=== PATIENT | female | born 1950 | race Caucasian/White ===

== ENCOUNTER 2018-09-17 19:39 | Observation (INO) | payer OTHER ==
--- OUTSIDE RECORDS SUMMARY | 2018-09-17 19:42 | XMS REPORT ---
:1950 [facility] [address] [place] [address] Care Team Providers Name Role Phone BRADY WATTS Primary Care Provider Unavailable STEVEN BHATT M.D. Unavailable Unavailable SERGEY NICOLAS M.D. Unavailable Unavailable Problems This patient has no known problems. Allergies, Adverse Reactions, Alerts This patient has no known allergies or adverse reactions. Medications This patient has no known medications. Encounters Start End Encounter Admission Attending Care Care Encounter Date/Time Date/Time Type Type Clinicians Facility Department ID 2017-05-19 2017-05-19 Inpatient [facility] [id number] 17:23:00 13:14:00 2016-10-23 2016-10-23 Outpatient [facility] [id number] 07:25:00 07:25:00 2016-10-23 2016-10-23 Outpatient [facility] [id number] 07:24:00 07:24:00 2016-10-23 2016-10-23 Outpatient [facility] [id number] 07:17:00 07:17:00 2016-10-21 2016-10-21 Outpatient [facility] [id number] 07:35:00 07:35:00 2016-10-15 2016-10-15 Outpatient [facility] [id number] 07:20:00 07:20:00 2016-10-14 2016-10-14 Outpatient [facility] [id number] 07:54:00 07:54:00 2016-10-09 2016-10-09 Outpatient [facility] [id number] 07:31:00 07:31:00 2016-10-04 2016-10-03 Inpatient [facility] [id number] 04:07:00 20:44:00 Results Test Description Test Time Test Comments Text Results Atomic Results Result Comments CT HEAD OR BRAIN WO 2017-05-19 16:38:35 Information: Trauma, fall, right- sided CONTRAST ecchymosis, prior craniotomyCT scan of the brain without contrastMultiplanar reformatted images of the head were obtained withoutintravenous contrastCorrelation was made with the patient's prior CT scan of the brain date05/23/2015No acute intracranial hemorrhage, midline shifts or focal masses werenoted. Right-sided craniotomy defect and focal dural thickening is againnoted. Chronic left-sided subdural hygroma is identified. Generalizedatrophy, chronic white matter ischemic changes and multiple areas ofencephalomalacia more prominently noted within both frontal lobes isagain identified.IMPRESSION:1. No evidence of acute intracranial trauma2. Chronic left subdural hygroma3. Right craniotomy defect4. Generalized atrophy, chronic white matter ischemic changes andmultiple areas of encephalomalacia again noted.Radiation dose lowering techniques were used according to Kirill. [id number]& FIBULA 2V. 2017-05-19 15:10:32 RIGHT LOWER LEG 2 VIEWS:CLINICAL HISTORY: Right leg pain and swelling.Bony structures are osteoporotic. Cortical margins are intact. There issoft tissue edema within the lower two thirds of the lower leg. This ismost prominent along the lateral aspect. No radiopaque foreign bodiesare identified. Vascular calcifications are noted.IMPRESSION:1. No acute osseous abnormality.2. Soft tissue swelling and edema. US DUPLX LWR EXT.VEIN 2017-05-19 14:34:21 EXAM: Right Lower Extremity Duplex COMPRSS UNI-RIGHT Venous Sonogram.TECHNIQUE: Greyscale imaging with and without Doppler interrogationincluding Doppler wave-form analysis and Doppler color-flow imaging.HISTORY: Right lower extremity edema.COMPARISON: 10/04/2016.FINDINGS: Right Lower Extremity: The common femoral, superficial femoral, andpopliteal veins demonstrated normal compressibility, and normalaugmented and phasic Doppler data were obtained. Normal augmentedDoppler data was obtained from the peroneal, posterior tibial, andanterior tibial veins.Left Lower Extremity: Not studied.IMPRESSION: No evidence of DVT involving the right lower extremity. CT LWR.EXTRM WO 2016-10-04 07:58:08 Information: Found on floorCT scan of CONTRAST-RIGHT the right hipMultiplanar reformatted images of the right hip were obtained.There is a subtle nondisplaced fracture of the greater trochanter. Thereis mild sclerosis and osteophytic spurring of the articulating surfaces.Degenerative cysts noted of the femoral head. There is mild soft tissueedema overlying the greater trochanter. No significant joint effusion isnoted.IMPRESSION:1. Subtle nondisplaced fracture of the greater trochanter2. Degenerative changes3. Mild soft tissue edema.Radiation dose lowering techniques were used with automated exposurecontrol, adjusting the mA according to patient's size.The preliminary findings were faxed to the emergency room by Dr. Lorenzanaat 0022 hours. XR PELVIS 1-2 VIEWS 2016-10-04 07:56:32 Information: Fall and floorPelvis one viewAllowing for the rotation of the right femur there is an equivocalsubtle nondisplaced fracture of the greater trochanter. There is mildsclerosis and osteophytic spurring of the articulating surfaces. Thereare no dislocations or masses.IMPRESSION:1. Findings suggesting a subtle nondisplaced fracture of the greatertrochanter.2. Degenerative changes. XR X-RAY EXAM OF FEMUR 2016-10-04 07:55:14 Information: Found on floorRight femur 2/>-RIGHT 2 viewsThere is equivocal subtle cortical lucency with cortical interruption ofthe greater trochanter. Fracture is not excluded. No dislocations ormasses were demonstrated. There is slight sclerosis of the articulatingsurfaces of the acetabulum with mild osteophyte formation.IMPRESSION:1. Equivocal subtle nondisplaced fracture of the greater trochanter.2. Degenerative changes of the right hip. [id number]& FIBULA 2V. 2016-10-04 07:35:25 Information: FallRight tibia-fibula 2 viewsThere is diffuse demineralization. There are no gross fractures,dislocations or masses. There is slight sclerosis of the articulatingsurfaces.IMPRESSION:1. Demineralization2. No gross evidence of acute bony trauma3. Mild degenerative changes. XR CHEST SGL 1V, 2016-10-04 07:14:39 Information: FallChest one viewIn FRONTAL comparison to the prior chest x-ray dated 05/23/2015 the heart remainsenlarged. Pulmonary vascularity is normal. There are no pulmonaryconsolidations or pleural effusions. Transfixed right clavicularfracture is again noted.IMPRESSION:1. Cardiomegaly. US DUPLX LWR EXT.VEIN 2016-10-04 06:56:01 ULTRASOUND RIGHT LEG VEINS: CLINICAL COMPRSS UNI-RIGHT INFORMATION: Lower extremity edema, erythema. Real-time ultrasound, duplex doppler, color flow, and spectral waveformexamination of the femoral and popliteal veins as well as the proximalupper calf veins was performed.The veins have a normal appearance without internal echoes or extrinsicabnormality. They are normally compressible. Lower extremity edema isnoted. No sonographic abnormalities are otherwise seen around the veins. Doppler studies reveal normal blood flow.IMPRESSION: Patent deep veins of the right lower extremity.The report was faxed to Dr. Barrett in the ER by Dr. Lorenzana on 10/04/2016 at04:53 AM.
[2018-09-17] MEDS ORDERED: NA CHLORIDE 0.9% 1,000 ML ONE (20:41)
[2018-09-17] MEDS ORDERED: ACETAMINOPHEN 500 MG TAB ONE (20:41)
[2018-09-17 20:52] LABS: Absolute Lymphocytes (CBC) 1.3 K/uL (0.7-4.9); Basophils % 0.3 % (0-1.3); Hematocrit 36.7 % (36.0-45.0); MPV 8.1 fL (7.6-11.3); RBC Red Blood Cell Count 3.82 M/uL (3.86-4.86)
[2018-09-17 21:05] LABS: Protime INR 1.05
[2018-09-17 21:19] LABS: ALT/SGPT 12 U/L (12-78); AST/SGOT 11 U/L (15-37); Albumin 2.6 g/dL (3.4-5.0); Alkaline Phosphatase 202 U/L (45-117); BUN Blood Urea Nitrogen 29 mg/dL (7-18); Bicarbonate 25 mmol/L (21-32); Bilirubin Direct < 0.1 mg/dL (0-0.2); Bilirubin Total 0.2 mg/dL (0.2-1.0); Creatine Phosphokinase 50 U/L (26-192); Glucose Level 105 mg/dL (74-106); Lipase 207 U/L (73-393); Magnesium 2.2 mg/dL (1.8-2.4); Potassium 4.5 mmol/L (3.5-5.1); Protein, Total 6.1 g/dL (6.4-8.2); Sodium Level 140 mmol/L (136-145); Troponin (Emerg Dept Use Only) < 0.02 ng/mL (0.0-0.045)
[2018-09-17] MEDS ORDERED: MORPHINE 2 MG/ML SYR IV PRN (23:41)
[2018-09-17] MEDS ORDERED: ONDANSETRON 4 MG/2 ML VIAL IV PRN (23:41)
[2018-09-17] MEDS ORDERED: ACETAMINOPHEN 500 MG TAB PO PRN (23:41)
--- NOTE | 2018-09-17 23:47 | ER ---
Nurse's Notes [facility] Name: Janett Diego Age: 68 yrs Sex: Female : 1950 Arrival Date: 09/17/2018 Time: 19:45 Bed 4 Private MD: Diagnosis: transient AMS;seizure Presentation: 09/17 19:45 Presenting complaint: EMS states: When we got to the patients house the patient was jd3 acting normal, but the had called for seizure like activity. while we were assessing her she had a syncope episode lasting about 2 min. she started drooling and went unresponsive and her blood pressure dropped and her heart rate went down. she woke up slowly and was fully back to normal by the time we got here. even happened at about 1900. she has right sided deficits from a previous stroke with history of Jaime problems like Parkinson's and dementia.". Transition of care: patient was not received from another setting of care. Onset of symptoms was September 17, 2018. Risk Assessment: Do you want to hurt yourself or someone else? Patient reports no desire to harm self or others. Initial Sepsis Screen: Does the patient meet any 2 criteria? Altered Mental Status. No. Patient's initial sepsis screen is negative. Does the patient have a suspected source of infection? No. Patient's initial sepsis screen is negative. Care prior to arrival:. 19:45 Method Of Arrival: EMS: [facility] jd3 19:45 Acuity: KATHY 2 jd3 Historical: - Allergies: 19:53 No Known Allergies; jd3 - Home Meds: 19:53 Unable to obtain [Active]; jd3 - PMHx: 19:53 CVA; Parkinsons; Dementia; jd3 - PSHx: 19:53 abdominal surgery; jd3 - Immunization history:: Adult Immunizations unknown. - Social history:: Smoking status: Patient uses tobacco products, smokes one pack cigarettes per day. - Ebola Screening: : Patient negative for fever greater than or equal to 101.5 degrees Fahrenheit, and additional compatible Ebola Virus Disease symptoms. - Family history:: not pertinent. - Hospitalizations: : No recent hospitalization is reported. Screenin:54 Abuse screen: Denies threats or abuse. Nutritional screening: No deficits noted. jd3 Tuberculosis screening: No symptoms or risk factors identified. Fall Risk IV access (20 points). Ambulatory Aid- Crutches/Cane/Walker (15 pts). Gait- Weak (10 pts.). Mental Status- Overestimates/Forgets Limitations (15 pts.). Total Dumont Fall Scale indicates High Risk Score (45 or more points). Fall prevention measures have been instituted. Side Rails Up X 2 Placed Close to Nursing Station Frequent Obs/Assessments Occuring. Assessment: 19:55 General: Appears in no apparent distress. comfortable, Behavior is calm, cooperative. jd3 Pain: Denies pain. Neuro: Level of Consciousness is awake, alert, obeys commands, confused, Oriented to person, place. Cardiovascular: Heart tones S1 S2 present Capillary refill < 3 seconds Patient's skin is warm and dry. Rhythm is irregular. Respiratory: Airway is patent Respiratory effort is even, unlabored, Respiratory pattern is regular, symmetrical, Breath sounds are clear bilaterally. Denies cough, shortness of breath. GI: No signs and/or symptoms were reported involving the gastrointestinal system. : No signs and/or symptoms were reported regarding the genitourinary system. EENT: No signs and/or symptoms were reported regarding the EENT system. Derm: Skin is intact, Skin is dry, Skin is normal, Skin temperature is warm. Musculoskeletal: Circulation, motion, and sensation intact. Range of motion: intact in all extremities. 20:50 Reassessment: Patient appears in no apparent distress at this time. No changes from jd3 previously documented assessment. Patient and/or family updated on plan of care and expected duration. Pain level reassessed. 21:55 Reassessment: Patient appears in no apparent distress at this time. No changes from jd3 previously documented assessment. Patient and/or family updated on plan of care and expected duration. Pain level reassessed. 22:59 Reassessment: Patient appears in no apparent distress at this time. Patient and/or jd3 family updated on plan of care and expected duration. Pain level reassessed. awaiting admission, even and unlabored respirations noted. called taylor in reach. Patient denies pain at this time. 23:38 Reassessment: Patient appears in no apparent distress at this time. No changes from jd3 previously documented assessment. Patient and/or family updated on plan of care and expected duration. Pain level reassessed. Dr. Jordan at bedside Patient denies pain at this time. 09/18 00:16 Reassessment: Patient appears in no apparent distress at this time. Patient and/or jd3 family updated on plan of care and expected duration. Pain level reassessed. report called to Trinidad LOGAN. even and unlabored respirations. A\\T\\O X 2. IV is saline locked.. site is clean and dry with no redness or swelling. Patient denies pain at this time. 00:42 Reassessment: linens changed before pt is admitted. Patient denies pain at this time. jd3 Vital Signs: 09/17 19:53 BP 93 / 54; Pulse 89; Resp 20 S; Temp 98.0(O); Pulse Ox 100% on R/A; Weight 68.04 kg jd3 (R); Height 5 ft. 2 in. (157.48 cm) (R); Pain 0/10; 21:55 BP 114 / 73; Pulse 82; Resp 20 S; Pulse Ox 100% on R/A; jd3 22:59 BP 121 / 58; Pulse 87; Resp 16 S; Pulse Ox 100% on R/A; Pain 0/10; jd3 23:39 BP 130 / 95; Pulse 80; Resp 15 S; Pulse Ox 100% on R/A; jd3 09/18 00:17 BP 134 / 71; Pulse 85; Resp 14 S; Pulse Ox 100% on R/A; jd3 09/17 19:53 Body Mass Index 27.44 (68.04 kg, 157.48 cm) jd3 ED Course: 09/17 19:45 Patient arrived in ED. jd3 19:52 Triage completed. jd3 19:54 Arm band placed on. EKG completed in triage. Results shown to . jd3 19:54 Inserted saline lock: 22 gauge in left antecubital area, using aseptic technique. jd3 placed by [employer]. 19:55 Bassam Ceballos MD is Attending Physician. wa 19:56 Patient has correct armband on for positive identification. Placed in gown. Bed in low jd3 position. Call light in reach. Side rails up X2. youth nutritional monitor on. Pulse ox on. NIBP on. 20:01 Dilip Kolb RN is Primary Nurse. jd3 20:43 CT Head Brain wo Cont In Process Unspecified. EDMS 20:56 Inserted saline lock: 22 gauge in right antecubital area, using aseptic technique. jd3 Blood collected. placed by Hanna LOGAN. 23:46 Sabi Jordan MD is Hospitalizing Provider. ny 09/18 00:18 No provider procedures requiring assistance completed. Patient admitted, IV remains in jd3 place. Administered Medications: 09/17 20:56 Drug: NS 0.9% 1000 ml Route: IV; Rate: 1 bolus; Site: right antecubital; jd3 22:58 Follow up: Response: No adverse reaction; IV Status: Completed infusion; IV Intake: jd3 1000ml 20:56 Drug: Tylenol 1000 mg Route: PO; jd3 21:55 Follow up: Response: No adverse reaction jd3 Intake: 22:58 IV: 1000ml; Total: 1000ml. jd3 Outcome: 23:47 Decision to Hospitalize by Provider. ny 09/18 00:18 Admitted to Tele accompanied by tech, via stretcher, room 230, with chart, Report samia called to Trinidad LOGAN Condition: stable Instructed on the need for admit, Demonstrated understanding of instructions. 00:43 Patient left the ED. jd3 Signatures: Dispatcher [employer] EDMS Bassam Ceballos MD MD wa Davies, Jonathon, RN RN jd3 Corrections: (The following items were deleted from the chart) 09/17 19:59 19:45 Presenting complaint: EMS states: When we got to the patients house the patient samia was acting normal, but the had called for seizure like activity. while we were assessing her she had a syncope episode lasting about 2 min. she started drooling and went unresponsive. her blood pressure also dropped and her heart rate went down. she woke up slowly and was fully back to normal by the time we got here. even happened at about 1900. she has right sided deficits from a previous stroke" jd3 20:57 19:54 Inserted saline lock: 22 gauge in left antecubital area, using aseptic technique. jd3 jd3
--- NOTE | 2018-09-17 23:48 | EDPHYS ---
Physician Documentation [facility] Name: Janett Diego Age: 68 yrs Sex: Female : 1950 Arrival Date: 09/17/2018 Time: 19:45 Bed 4 Private MD: ED Physician Bassam Ceballos HPI: 09/17 21:30 This 68 yrs old Female presents to ER via EMS with complaints of found wa unresponsive. 21:44 The patient has experienced syncope, became unresponsive, lost consciousness. Onset: wa The symptoms/episode began/occurred just prior to arrival. Duration: This was a single episode, that lasted 3 minute(s). Context: the episode(s) was witnessed. 23:47 Associated injury: The patient did not suffer any apparent associated injury. wa Associated signs and symptoms: Pertinent positives: mild SPRING. Current symptoms: headache. The patient has not experienced similar symptoms in the past. The patient has not recently seen a physician. found unresponsive and drooling by family. did not witness shaking. however took several minutes before pt became more alert. Historical: - Allergies: 19:53 No Known Allergies; jd3 - Home Meds: 19:53 Unable to obtain [Active]; jd3 - PMHx: 19:53 CVA; Parkinsons; Dementia; jd3 - PSHx: 19:53 abdominal surgery; jd3 - Immunization history:: Adult Immunizations unknown. - Social history:: Smoking status: Patient uses tobacco products, smokes one pack cigarettes per day. - Ebola Screening: : Patient negative for fever greater than or equal to 101.5 degrees Fahrenheit, and additional compatible Ebola Virus Disease symptoms. - Family history:: not pertinent. - Hospitalizations: : No recent hospitalization is reported. ROS: 23:48 Constitutional: Negative for fever, chills, and weight loss, Eyes: Negative for injury, wa pain, redness, and discharge, ENT: Negative for injury, pain, and discharge, Neck: Negative for injury, pain, and swelling, Cardiovascular: Negative for chest pain, palpitations, and edema, Respiratory: Negative for shortness of breath, cough, wheezing, and pleuritic chest pain, Abdomen/GI: Negative for abdominal pain, nausea, vomiting, diarrhea, and constipation, Back: Negative for injury and pain, : Negative for injury, bleeding, discharge, and swelling, MS/Extremity: Negative for injury and deformity, Skin: Negative for injury, rash, and discoloration. 23:48 Neuro: Positive for altered mental status, headache, syncope. 23:48 All other systems are negative. Exam: 23:49 Abdomen/GI: Exam negative for Inspection: abdomen appears normal, Bowel sounds: normal, wa Palpation: abdomen is soft and non-tender. 23:49 Constitutional: This is a well developed, well nourished patient who is awake, alert, and in no acute distress. Head/Face: Normocephalic, atraumatic. Eyes: Pupils equal round and reactive to light, extra-ocular motions intact. Lids and lashes normal. Conjunctiva and sclera are non-icteric and not injected. Cornea within normal limits. Periorbital areas with no swelling, redness, or edema. ENT: Nares patent. No nasal discharge, no septal abnormalities noted. Tympanic membranes are normal and external auditory canals are clear. Oropharynx with no redness, swelling, or masses, exudates, or evidence of obstruction, uvula midline. Mucous membranes moist. Neck: Trachea midline, no thyromegaly or masses palpated, and no cervical lymphadenopathy. Supple, full range of motion without nuchal rigidity, or vertebral point tenderness. No Meningismus. Cardiovascular: Regular rate and rhythm with a normal S1 and S2. No gallops, murmurs, or rubs. Normal PMI, no JVD. No pulse deficits. Respiratory: Lungs have equal breath sounds bilaterally, clear to auscultation and percussion. No rales, rhonchi or wheezes noted. No increased work of breathing, no retractions or nasal flaring. Abdomen/GI: Soft, non-tender, with normal bowel sounds. No distension or tympany. No guarding or rebound. No evidence of tenderness throughout. Back: No spinal tenderness. No costovertebral tenderness. Full range of motion. Skin: Warm, dry with normal turgor. Normal color with no rashes, no lesions, and no evidence of cellulitis. MS/ Extremity: Pulses equal, no cyanosis. Neurovascular intact. Full, normal range of motion. Psych: Awake, alert, with orientation to person, place and time. Behavior, mood, and affect are within normal limits. 23:49 Neuro: Orientation: is normal, Cranial nerves: grossly normal, Motor: RUE contracture. moves LE symmetrically. Vital Signs: 19:53 BP 93 / 54; Pulse 89; Resp 20 S; Temp 98.0(O); Pulse Ox 100% on R/A; Weight 68.04 kg jd3 (R); Height 5 ft. 2 in. (157.48 cm) (R); Pain 0/10; 21:55 BP 114 / 73; Pulse 82; Resp 20 S; Pulse Ox 100% on R/A; jd3 22:59 BP 121 / 58; Pulse 87; Resp 16 S; Pulse Ox 100% on R/A; Pain 0/10; jd3 23:39 BP 130 / 95; Pulse 80; Resp 15 S; Pulse Ox 100% on R/A; d3 09/18 00:17 BP 134 / 71; Pulse 85; Resp 14 S; Pulse Ox 100% on R/A; jd3 09/17 19:53 Body Mass Index 27.44 (68.04 kg, 157.48 cm) jd3 MDM: 09/17 19:55 Patient medically screened. ks 23:49 Differential Diagnosis: cardiac arrhythmia, cerebrovascular accident, seizure, ks vasovagal episode, syncope. Data reviewed: lab test result(s), EKG, radiologic studies. Test interpretation: by ED physician or midlevel provider: EKG interp by me: HR 90. sinus. PVCs. LBBB. 23:55 Response to treatment: the patient's symptoms have markedly improved after treatment. ks Physician consultation: Sabi Jordan MD. Admission orders: after a detailed discussion of the patient's condition and case, the admit orders are written by me. 09/17 20:13 Order name: UDS ks 09/17 20:13 Order name: Basic Metabolic Panel; Complete Time: 22: ks 09/17 20:13 Order name: CBC with Diff; Complete Time: 22: ks 09/17 20:13 Order name: CPK; Complete Time: 22: ks 09/17 20:13 Order name: Hepatic Function; Complete Time: 22: ks 09/17 20:13 Order name: Lipase; Complete Time: 22:08 ks 09/17 20:13 Order name: Magnesium; Complete Time: 22:08 ks 09/17 20:13 Order name: Protime (+inr); Complete Time: 22:08 ks 09/17 20:13 Order name: Troponin (emerg Dept Use Only); Complete Time: 22:08 ks 09/17 20:16 Order name: Urine Microscopic Only ks 09/17 23:46 Order name: CBC with Automated Diff EDDC 09/17 23:46 Order name: CBC with Automated Diff EDDC 09/17 23:46 Order name: Comprehensive Metabolic Panel EDDC 09/17 23:46 Order name: Comprehensive Metabolic Panel EDDC 09/17 20:13 Order name: CT Head Brain wo Cont ks 09/17 20:13 Order name: EKG; Complete Time: 20:14 ks 09/17 20:13 Order name: Cardiac monitoring; Complete Time: 20:29 ks 09/17 20:13 Order name: EKG - Nurse/Tech; Complete Time: 20:29 ks 09/17 20:13 Order name: IV Saline Lock; Complete Time: 20:29 ks 09/17 20:13 Order name: NPO; Complete Time: 20:29 ks 09/17 20:13 Order name: O2 Per Protocol; Complete Time: 20:29 ks 09/17 20:13 Order name: O2 Sat Monitoring; Complete Time: 20:29 ks 09/17 23:46 Order name: CONS Pharmacy Consult [facility] 09/17 23:46 Order name: CONS Physician Consult [facility] 09/17 23:46 Order name: NPO EDDC 09/17 23:46 Order name: EEG Request [facility] 09/17 23:46 Order name: EEG Request EDDC Administered Medications: 20:56 Drug: NS 0.9% 1000 ml Route: IV; Rate: 1 bolus; Site: right antecubital; jd3 22:58 Follow up: Response: No adverse reaction; IV Status: Completed infusion; IV Intake: jd3 1000ml 20:56 Drug: Tylenol 1000 mg Route: PO; jd3 21:55 Follow up: Response: No adverse reaction jd3 Disposition: 09/17/18 23:47 Hospitalization ordered by Sabi Jordan for Observation. Preliminary diagnosis are transient AMS, seizure. - Bed requested for Telemetry/MedSurg (observation). - Status is Observation. jd3 - Condition is Stable. - Problem is new. - Symptoms have improved. UTI on Admission? No Signatures: Dispatcher [employer] EDDC Ann-Marie Reyna RN Bassam Juarez MD MD wa Davies, Jonathon, RN RN jd3 Corrections: (The following items were deleted from the chart) 09/18 00:09/17 23:47 Hospitalization Ordered by Sabi Jordan MD for Observation. Preliminary fc diagnosis is transient AMS; seizure. Bed requested for Telemetry/MedSurg (observation). Status is Observation. Condition is Stable. Problem is new. Symptoms have improved. UTI on Admission? No. ks 09/18 00:43 00:01 09/17/2018 23:47 Hospitalization Ordered by Sabi Jordan MD for Observation. jd3 Preliminary diagnosis is transient AMS; seizure. Bed requested for Telemetry/MedSurg (observation). Status is Observation. Condition is Stable. Problem is new. Symptoms have improved. UTI on Admission? No.
--- NOTE | 2018-09-18 01:23 | P.HP ---
Certification for Inpatient Patient admitted to: Observation With expected LOS: <2 Midnights Patient will require the following post-hospital care: None Practitioner: I am a practitioner with admitting privileges, knowledge of patient current condition, hospital course, and medical plan of care. Services: Services provided to patient in accordance with Admission requirements found in Title 42 Section 412.3 of the Code of Federal Regulations Patient History Date of Service: 09/17/18 Reason for admission: Seizure disorder/acute onset of seizure History of Present Illness: Patient is a 68-year-old female who is here in the [facility] vacationing. Patient originally is from [place]. Patient became confused and it appears she had had a seizure. She has had a history of a large MCA infarct. Her speech however was not affected. She came into the hospital today because she became altered. Her brother who was with err did not witness and active seizure. However, since she had a large left MCA infarct she has had seizures. She will be admitted to the hospital for further workup. Allergies No Known Allergies Allergy (Unverified 09/18/18 00:59) - Past Medical/Surgical History -: History of CVA -: History of seizure disorder -: Coronary artery bypass - Family History Father Family History: Reviewed- Non-Contributory - Social History Smoking Status: Light Tobacco smoker (1-9 cigarettes/day) Alcohol use: No CD- Drugs: No Review of Systems 10-point ROS is otherwise unremarkable Physical Examination - Vital Signs Temperature: 98 F Blood Pressure: 130/70 Pulse: 80 Respirations: 18 Pulse Ox (%): 96 - Physical Exam General: Alert, In no apparent distress, Oriented x3 HEENT: Atraumatic, PERRLA, Mucous membr. moist/pink, EOMI, Sclerae nonicteric Neck: Supple, 2+ carotid pulse no bruit, No LAD, Without JVD or thyroid abnormality Respiratory: Clear to auscultation bilaterally, Normal air movement Cardiovascular: Regular rate/rhythm, Normal S1 S2, No murmurs Gastrointestinal: Normal bowel sounds, Soft and benign, Non-distended, No tenderness Musculoskeletal: No tenderness Integumentary: No rashes Neurological: Normal speech, Normal tone, Sensation intact, Cranial nerves 3-12 intact, Normal affect, Abnormal gait, Abnormal strength (Right upper and lower extremity are weaker than the left) Lymphatics: No axilla or inguinal lymphadenopathy - Studies Laboratory Data (last 24 hrs) 09/17/18 20:53: PT 12.4, INR 1.05 09/17/18 20:53: Sodium 140, Potassium 4.5, BUN 29 H, Creatinine 1.05, Glucose 105, Magnesium 2.2, Total Bilirubin 0.2, AST 11 L, ALT 12, Alkaline Phosphatase 202 H, Lipase 207 09/17/18 20:32: WBC 10.5, Hgb 12.1, Hct 36.7, Plt Count 222 Assessment & Plan - Problems (Diagnosis) (1) Seizure disorder Current Visit: Yes Status: Acute (2) Prerenal azotemia Current Visit: Yes Status: Acute (3) Left acute arterial ischemic stroke, MCA (middle cerebral artery) Current Visit: Yes Status: Acute - Plan Plan: 1. Anti-platelet therapy 2. Statin therapy 3. O2 per protocol 4. Rule out DVT 5. EEG 6. Neurology consultation 7. Possible discharge in the morning with outpatient follow-up Discharge Plan: Home Plan to discharge in: 48 Hours - Advance Directives Does patient have a Living Will: No Does patient have a Durable POA for Healthcare: No - Code Status/Comfort Care Code Status Assessed: Yes Code Status: Full Code Critical Care: No Time Spent Managing PTS Care (In Minutes): 45
[2018-09-18] MEDS: NA CHLORIDE 0.9% 1,000 ML IV SCH ×2 (01:29→10:01)
[2018-09-18 06:35] LABS: Absolute Lymphocytes (CBC) 2.3 K/uL (0.7-4.9); Basophils % 0.2 % (0-1.3); Hematocrit 31.9 % (36.0-45.0); Lymphocytes % 33.1 % (15.3-44.8); MPV 8.6 fL (7.6-11.3); RBC Red Blood Cell Count 3.39 M/uL (3.86-4.86)
[2018-09-18 06:56] LABS: Albumin 2.1 g/dL (3.4-5.0); Bilirubin Total 0.3 mg/dL (0.2-1.0); Potassium 3.6 mmol/L (3.5-5.1); Protein, Total 4.9 g/dL (6.4-8.2)
[2018-09-18] MEDS ORDERED: levETIRAcetam 500 MG TAB PO ONE (10:43)
--- NOTE | 2018-09-18 12:35 | EKG ---
Test Date: 2018-09-17 Test Time: 19:36:37 Inspector Returned Materials: MARK MEASUREMENT RESULTS: Intervals: Rate: 90 MA: 156 QRSD: 148 QT: 430 QTc: 526 [place]: P: MA: 156 QRS: 12 T: 191 INTERPRETIVE STATEMENTS: Sinus rhythm with premature supraventricular complexes Left bundle branch block Abnormal ECG No previous ECG available for comparison Electronically Signed On 09-18-18 12:32:53 CDT by Tyshawn Cooper
[2018-09-18] MEDS: D5W 1,000 ML IV SCH (18:16)
--- NOTE | 2018-09-18 18:28 | CON ---
Reason For Consultation: Consultation called by hospitalist because of seizures. History Of Present Illness: Ms. Diego is a 68-year-old right-handed patient with history of a large left anterior cerebral artery stroke and possible smaller left middle cerebral artery str radha in 2008 with subsequent marked right lower extremity weakness and to a lesser extent right upper extremity weakness and little right facial weakness. She has had seizures since her stroke. However , the patient is unsure of the frequency. She was reportedly found by her brother, who discovered th at she apparently had a seizure. There is no description of the event. It was not witnessed by her brother. It is just that she appeared confused when he found her and surmise that she must have had a seizure. At [facility], head CT scan was remarkable for chronic changes consistent with l arge left PAYAL stroke and there was also bilateral frontal atrophy in white matter region suggestive o f possible additional chronic strokes. The posterior part of her brain appeared to have better prese rved parenchyma. She was put on Keppra 500 mg twice daily after receiving Keppra in the emergency ro om. Since her admission, she has had no further seizure-like activity. Her complete blood count wit h differential is essentially unremarkable. Chemistries remarkable for a slightly elevated chloride and BUN, glucose ranged from 63 to 105, calcium slightly low at 7.3. Liver function studies, AST and ALT mildly low with alkaline phosphatase being slightly elevated at 151. Urinalysis, no significant abnormalities identified. Urine screen was negative. Coagulation panel was negative. H er electrocardiogram showed sinus rhythm with premature ventricular complexes and left bundle branch block. Past Medical History: As indicated. Surgical History: Coronary artery bypass. Family History: Noncontributory. Social History: Patient smokes up to 9 cigarettes a day. No alcohol or IV drug use. Allergies: NO KNOWN DRUG ALLERGIES. Current Medications: Keppra 500 mg twice daily, Zofran as needed, and Extra Strength Tylenol. Review of Systems: She denies any recent fevers or chills, nausea, vomiting, myalgias, arthralgias, any rash, headache, weight change, psychiatric complaints, gastrointestinal, or genitourinary issues. Physical Examination: VITAL SIGNS: Blood pressure , respiratory rate 18, temperature 97.7, oxygen saturation 95% . Weight 140 pounds. Height 5 feet 2 inches. GENERAL: Ms. Diego is lying in bed, somewhat on the right side. She is in no acute distress. HEENT: She is normocephalic, atraumatic. She does have poor dentition. NEUROLOGIC: Cranial nerves show very subtle right nasolabial fold decrease, but there is good excurs ion and smiling. Slight decreased light touch in the right compared to left side of face. Otherwise , intact cranial nerves. Motor: Right lower extremity shows mild weakness compared to the left side , 4/5 compared with 5/5 on the left lower extremity, more significant weakness around 3+/5 proximally and distally and on the left side 5/5. There is decreased sensation to light touch and temperature on the right compared to left side. Coordination: Actually slower on the right with some dysmetria noted in upper and lower extremity compared to the left side. Gait, she is able to ambulate with a w alker and has decreased stride length. Assessment: Ms. 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 Plan: 1.Continue Keppra 500 mg twice daily. 2.Continue with stroke risk reduction using aspirin 81 mg daily. May have a lipid panel and target LDL to less than 70. Blood pressures have been well managed without antihypertensive medications, sh ould still be followed regularly. After discharge, follow up with Dr. Weller in clinic 1 month later. SARAH/OLIVIA Voice ID: [id number] Report ID: [id number]
[2018-09-18] MEDS: levETIRAcetam 500 MG TAB PO SCH (20:18)
[2018-09-19] MEDS: levETIRAcetam 500 MG TAB PO SCH (08:38)
[2018-09-19] MEDS: D5W 1,000 ML IV SCH (08:38)
--- NOTE | 2018-09-19 11:45 | P.SSS ---
Patient History Date of Service: 09/19/18 Reason for admission: Seizure disorder/acute onset of seizure History of Present Illness: Patient is a 68-year-old female who is here in the [facility] vacationing. Patient originally is from [place]. Patient became confused and it appears she had had a seizure. She has had a history of a large MCA infarct. Her speech however was not affected. She came into the hospital today because she became altered. Her brother who was with err did not witness and active seizure. However, since she had a large left MCA infarct she has had seizures. She will be admitted to the hospital for further workup. Allergies No Known Allergies Allergy (Unverified 09/18/18 00:59) Home Medications: Levetiracetam [Keppra] 500 mg PO BID #60 tablet 09/18/18 - Past Medical/Surgical History Has patient received pneumonia vaccine in the past: Yes Diabetic: No -: History of CVA -: History of seizure disorder -: Coronary artery bypass - Family History Father History Unknown: Yes Mother History Unknown: Yes - Social History Smoking Status: Light Tobacco smoker (1-9 cigarettes/day) Alcohol use: No CD- Drugs: No Caffeine use: Yes Place of Residence: Home Review of Systems 10-point ROS is otherwise unremarkable Physical Examination - Vital Signs Temperature: 98.2 F Blood Pressure: 139/70 Pulse: 87 Respirations: 18 Pulse Ox (%): 99 - Physical Exam General: Alert, In no apparent distress HEENT: Atraumatic, PERRLA, Mucous membr. moist/pink, EOMI, Sclerae nonicteric Neck: Supple, 2+ carotid pulse no bruit, No LAD, Without JVD or thyroid abnormality Respiratory: Clear to auscultation bilaterally, Normal air movement Cardiovascular: Regular rate/rhythm, Normal S1 S2 Gastrointestinal: Normal bowel sounds, No tenderness Musculoskeletal: No tenderness Integumentary: No rashes Neurological: Normal gait, Normal speech, Normal strength at 5/5 x4 extr, Normal tone, Normal affect Lymphatics: No axilla or inguinal lymphadenopathy - Diagnosis (Problem(s)) (1) Seizure disorder Current Visit: Yes Status: Acute (2) Prerenal azotemia Current Visit: Yes Status: Acute Treatment Summary: Overall during the hospital stay patient remained stable Patient was initially admitted to the hospital for seizure-like activity that was witnessed. Was started on Keppra while here in the hospital. Neurology was consulted. Who recommended patient to be discharged home under stable condition. Patient also had hypoglycemia while here in the hospital and was monitor for next 24 hr. Did well overall and thus was discharged home under stable condition. - Disposition Disposition: ROUTINE DISCHARGE Condition: GOOD Patient Discharge Instructions: OK TO DC IV AND DC HOME IF OKAY WITH NEUROLOGY. FOLLOW-UP WITH PRIMARY CARE PROVIDER IN 1-2 WEEKS. FOLLOW-UP WITH NEUROLOGY IN 1-2 WEEKS. RETURN TO THE ER IF SYMPTOMS WORSE. CALL DR. CASTELLANOS AT [phone] IF ANY QUESTIONS REGARDING HOSPITAL STAY. PLEASE CALL THE FLOOR AT IF ANY MEDICATION OR NURSING QUESTIONS. Diet: AHA Activity: Fall precautions
--- NOTE | 2018-09-21 14:35 | RAD REPORT ---
EXAM DESCRIPTION: CT - Head Brain Wo Cont - 09/18/2018 3:11 am CLINICAL HISTORY: Syncope. Seizure-like activity. COMPARISON: None. TECHNIQUE: CT scan of the brain without IV contrast. This exam was performed according to our depa rtmental dose-optimization program, which includes automated exposure control, adjustment of the mA a nd/or kV according to patient size and/or use of iterative reconstruction technique. FINDINGS: Diffuse involutional changes are present. There are scattered areas of hypoattenuation wit hin the periventricular white matter, which likely represent chronic microvascular ischemia. Large ar ea of encephalomalacia in the bifrontal lobes, left greater than right. Prior right frontoparietal cr aniotomy is noted. No evidence of acute infarction, intracranial hemorrhage, extra-axial fluid collection, or midline sh ift. No air-fluid levels are seen in the paranasal sinuses to suggest acute sinusitis. IMPRESSION: No acute intracranial findings. Electronically signed by: Santy Donis MD 09/17/2018 9:12 PM CDT Due to temporary technical issues with the PACS/Fluency reporting system, reports are being signed by the in house radiologist as a courtesy to ensure prompt reporting. The interpreting radiologist is f ully responsible for the content of the report.
== END 2018-09-19 14:13 | disposition home or self-care (01) ==
LOC: ER 19:39 → ERHOLD 23:56 → 2ND 09-18 00:18
PROVIDERS: ADMIT Hospitalist; ATTEND Family Medicine
DX: G40.909 Epilepsy, unspecified, not intractable, without status epilepticus (principal); I69.351 Hemiplegia and hemiparesis following cerebral infarction affecting right dominant side; I49.3 Ventricular premature depolarization; I44.7 Left bundle-branch block, unspecified; R94.31 Abnormal electrocardiogram [ECG] [EKG]; I67.82 Cerebral ischemia; E16.2 Hypoglycemia, unspecified; F17.210 Nicotine dependence, cigarettes, uncomplicated; Z95.1 Presence of aortocoronary bypass graft
CPT/HCPCS: 96361; 93005; 85025 ×2; 80048; 36415 ×2; 83735; 82550; 82947; 85610; 82962 ×8; 80076; 83036; 84484; 83690; 80053; 83525; 84681; 70450; 97163; 96360; 99285; J7030 ×3; G0378 ×2